=== PATIENT | male | born 1930 | race Caucasian/White ===

== ENCOUNTER → 2017-12-23 | Outpatient (CLI) | payer OTHER ==
[~2017-12-23] MED LIST: ADULT LOW DOSE81 MG PO; ALEVE220 MG PO; ANASTROZOLE1 MG PO; ATENOLOL 50 MG50 M1 PO; ATENOLOL 50MG T50 MG PO; CALCIUM 600 +1 EAC1; CARISOPRODOL 3350 MG PO; ELIQUIS2.5 MG PO; HYDROCHLOROTH12.5 MG PO; HYDROCODON-ACE1 EAC7 PO; LANSOPRAZOLE30 MG PO; NORVASC10 MG PO; OMEGA-31000 M1 PO; PRADAXA75 MG PO; PRILOSEC40 MG PO; SIMVASTATIN40 MG PO; TAMSULOSIN HCL0.4 M1 PO; TRAMADOL 50 MG50 MG PO
--- NOTE | ~2017-12-23 | PFR/MVV ---
[facility] [place] [address] PULMONARY FUNCTION MVV/REPORT Name: HUMBERTO KESSLER Room #: [facility]#: [id number] Admission: 12/23/17 Attend Phys: Martin Brian MD Discharge: Date of : [birth year] Report #: [id number] THIS REPORT FOR: //name// COPIES FOR: AGE: 87 SEX/RACE: M/C >> SPIROMETRY: (BTPS) Height: 67 in cm Weight: 205 lbs kg Exam Date: 12/23/17 PRE-RX POST-RX PRED BEST %PRED BEST %PRED %CHG FVC LITERS . 2.91 . 2.81 . 96 . 2.88 . 99 . 2 FEV1 LITERS . 2.19 . 2.18 . 100 . 2.12 . 97 . -3 FEV1/FVC % . 76 . 78 . 102 . 74 . 96 . -5 IXJ29-54% L/Sec . 2.09 . 2.04 . 97 . 1.64 . 78 . -19 PEF L/SEC . 6.88 . 4.38 . 64 . 4.19 . 61 . -4 FEF50/FIF50 UNITLESS . <1.00 . 1.40 . . 0.97 . . -31 MVV L/Min . 94 . 69 . 74 f 1/Min . . 140 . >> LUNG VOLUMES: (BTPS) PRE-RX POST-RX PRED AVG %PRED AVG %PRED %CHG VC Liters . 2.91 . 2.81 . 96 . . . TLC Liters . 5.51 . 5.65 . 103 . . . RV Liters . 2.66 . 2.85 . 107 . . . RV/TLC % . 47 . 50 . 107 . . . FRC PL Liters . 3.03 . 3.10 . 102 . . . FRC N2 Liters . 3.03 . . . . . ERV Liters . . 0.25 . . . . IC Liters . . 2.41 . . . . >> DIFFUSION: DLCO ml/Min/mmHg . 17.3 . 15.5 . 89 . . . DL Ranjith ml/Min/mmHg . 17.3 . 15.5 . 89 . . . DLCO/VA ml/Min/mmHg . 3.12 . 3.65 . 117 . . . VA Liters . . 4.24 . . . . [facility] [address] [place] [address] PULMONARY FUNCTION MVV/REPORT Name: HUMBERTO KESSLER Room #: [facility]#: [id number] Admission: 12/23/17 Attend Phys: Martin Brian MD Discharge: Date of : [birth year] Report #: [id number] COMMENTS: COMMENTS: >> RESISTANCE: PRE-RX PRED AVG %PRED Raw Total cmH20/L/Sec . . 7.38 . Raw Insp cmH20/L/Sec . . 8.76 . Raw Exp cmH20/L/Sec . . 14.03 . Raw cmH20/L/Sec . 1.55 . 2.90 . 187 Gaw L/Sec/cmH20 . 0.728 . 0.345 . 47 sRaw cmH20 Sec . 4.70 . 11.88 . 253 sGaw l/cmH20 Sec . 0.213 . 0.084 . 40 Vtq Liters . . 4.10 . # = OUTSIDE 95% CONFIDENCE INTERVAL CALIBRATION: PRED: 3.00 ACTUAL: EXP 3.01 INSP 3.02 [facility]OL[facility]-06 [facility] N-[facility]04-4 >> INTERPRETATION/IMPRESSION: CC: Martin Brian MD PULMONARY FUNCTION TEST Spirometric examination showed normal flows. There was no significant bronchodilator response. Lung volumes were normal. Diffusion capacity was normal. Flow volume loop was normal. IMPRESSION: Normal pulmonary functions. <ELECTRONICALLY SIGNED> By: Humble Payne MD 12/29/17 1645 Humble Payne MD /nt
== END ==
LOC: CAT 08:57
DX: C50.929 Malignant neoplasm of unspecified site of unspecified male breast (principal); I77.810 Thoracic aortic ectasia; I25.10 Atherosclerotic heart disease of native coronary artery without angina pectoris; K57.30 Diverticulosis of large intestine without perforation or abscess without bleeding; R11.0 Nausea; N40.0 Benign prostatic hyperplasia without lower urinary tract symptoms; M47.816 Spondylosis without myelopathy or radiculopathy, lumbar region; M41.85 Other forms of scoliosis, thoracolumbar region; I10 Essential (primary) hypertension; I48.91 Unspecified atrial fibrillation

== ENCOUNTER 2018-04-16 17:50 | Emergency (ER) | payer OTHER ==
[~2018-04-16] VITALS: Ht 170.2 cm; Wt 93.0 kg
[2018-04-16 19:42] VITALS: BP 162/90
== END 2018-04-16 19:43 | disposition home or self-care (01) ==
LOC: ER 17:50
DX: T18.128A Food in esophagus causing other injury, initial encounter (principal); X58.XXXA Exposure to other specified factors, initial encounter; Y93.89 Activity, other specified; Y92.89 Other specified places as the place of occurrence of the external cause; Y99.8 Other external cause status; I10 Essential (primary) hypertension; I48.91 Unspecified atrial fibrillation; M13.812 Other specified arthritis, left shoulder; M13.811 Other specified arthritis, right shoulder; Z96.641 Presence of right artificial hip joint; K21.9 Gastro-esophageal reflux disease without esophagitis; Z88.0 Allergy status to penicillin; Z88.2 Allergy status to sulfonamides